=== PATIENT | female | born 1995 | race Caucasian/White ===

== ENCOUNTER 2021-05-25 09:05 | Emergency (ER) | payer BC ==
--- NOTE | 2021-05-25 09:33 | EDM.PDOC ---
ED HPI GENERAL MEDICAL PROBLEM - General Chief Complaint: General Stated Complaint: TOOTHACHE Time Seen by Provider: 05/25/21 09:19 Source of Information: Reports: Patient History Limitations: Reports: No Limitations - History of Present Illness INITIAL COMMENTS - FREE TEXT/NARRATIVE: Patient is a 25-year-old female presents today for swelling to her left lower gumline. Patient dates that started last night and she tried to call her dentist began getting for 6 months. She has an area that is fluctuant and painful on her back wisdom tooth. Patient denies any difficulty breathing swallowing and swelling tenderness to her jawline. Gums Pain Score (Numeric/FACES): 6 - Related Data Allergies Allergy/AdvReac Type Severity Reaction Status Date / Time No Known Allergies Allergy Verified 05/25/21 09:22 Home Meds: Home Meds . [Unable to Verify Home Med List] 05/25/21 [History] Past Medical History - Past Health History Medical/Surgical History: Denies Medical/Surgical History Psychiatric History: Reports: Depression - Infectious Disease History Infectious Disease History: Reports: Chicken Pox Social & Family History - Tobacco Use Tobacco Use Status *Q: Never Tobacco User - Caffeine Use Caffeine Use: Reports: None - Recreational Drug Use Recreational Drug Use: No ED ROS GENERAL - Review of Systems Review Of Systems: See Below Constitutional: Reports: No Symptoms HEENT: Reports: Dental Pain Respiratory: Reports: No Symptoms Cardiovascular: Reports: No Symptoms Endocrine: Reports: No Symptoms GI/Abdominal: Reports: No Symptoms : Reports: No Symptoms Musculoskeletal: Reports: No Symptoms Skin: Reports: No Symptoms Neurological: Reports: No Symptoms Psychiatric: Reports: No Symptoms Hematologic/Lymphatic: Reports: No Symptoms Immunologic: Reports: No Symptoms ED EXAM, GENERAL - Physical Exam Exam: See Below Exam Limited By: No Limitations General Appearance: Alert, WD/WN, No Apparent Distress Throat/Mouth: Normal Inspection, Normal Lips, Normal Voice. No: Normal Gums, Dysphagia Head: Atraumatic Respiratory/Chest: No Respiratory Distress, Lungs Clear, Normal Breath Sounds Cardiovascular: Normal Peripheral Pulses, Regular Rate, Rhythm GI/Abdominal: Normal Bowel Sounds, Soft, Non-Tender Course - Vital Signs Last Recorded V/S: Last Vital Signs Temp 96.7 F L 05/25/21 09:22 Pulse 94 05/25/21 09:22 Resp 16 05/25/21 09:22 BP 140/93 H 05/25/21 09:22 Pulse Ox 96 05/25/21 09:22 Departure - Departure Time of Disposition: :31 Disposition: Home, Self-Care 01 Condition: Good Clinical Impression: Dental abscess - Discharge Information *PRESCRIPTION DRUG MONITORING PROGRAM REVIEWED*: Not Applicable *COPY OF PRESCRIPTION DRUG MONITORING REPORT IN PATIENT THIERRY: Not Applicable Instructions: Dental Abscess, [id number] Referrals: Perla Tineo DO [Primary Care Provider] - Additional Instructions: The following information is given to patients seen in the emergency department who are being discharged to home. This information is to outline your options for follow-up care. We provide all patients seen in our emergency department with a follow-up referral. The need for follow-up, as well as the timing and circumstances, are variable depending upon the specifics of your emergency department visit. If you don't have a primary care physician on staff, we will provide you with a referral. We always advise you to contact your personal physician following an emergency department visit to inform them of the circumstance of the visit and for follow-up with them and/or the need for any referrals to a consulting specialist. The emergency department will also refer you to a specialist when appropriate. This referral assures that you have the opportunity for follow-up care with a specialist. All of these measure are taken in an effort to provide you with optimal care, which includes your follow-up. Under all circumstances we always encourage you to contact your private physician who remains a resource for coordinating your care. When calling for follow-up care, please make the office aware that this follow-up is from your recent emergency room visit. If for any reason you are refused follow-up, please contact the [facility] Emergency Department at and asked to speak to the emergency department charge nurse. Please follow up with your primary care physician. If you do not have a primary care physician, see below: [facility] [address] [place] [id number] [facility] [address] [place] [id number] You are seen for what looks like a dental abscess. We will send you home on antibiotic mouthwash as well as antibiotic to take for this abscess. There is no swelling to the gumline this area she did become smaller when she started the antibiotic the area increased in size she is having difficulty breathing or swallowing please return to ED immediately otherwise follow-up with primary care physician or dentist. Sepsis Event Note (ED) - Evaluation Sepsis Screening Result: No Definite Risk - Focused Exam Vital Signs: Vital Signs Temp Pulse Resp BP Pulse Ox 05/25/21 09:22 96.7 F L 94 16 140/93 H 96 - Assessment/Plan Plan: Patient is a 25-year-old female who presents today for pain along the gum lines. Patient has a abscess under the back right lower gumline under the lid was improved. Patient has no airway compromise and seems to be tolerating pain well will start patient on amoxicillin and have her follow-up with dental as outpatient.
== END 2021-05-25 10:06 | disposition home or self-care (01) ==
LOC: MW.ED 09:05
DX: K04.7 Periapical abscess without sinus (principal)
CPT/HCPCS: 99282; 99283

== ENCOUNTER 2021-08-08 10:45 | Emergency (ER) | payer BC ==
--- NOTE | 2021-08-08 10:53 | EDM.PDOC ---
ED HPI GENERAL MEDICAL PROBLEM - General Chief Complaint: Respiratory Problem Stated Complaint: SOB Time Seen by Provider: 08/08/21 10:47 Source of Information: Reports: Patient History Limitations: Reports: No Limitations - History of Present Illness INITIAL COMMENTS - FREE TEXT/NARRATIVE: HISTORY AND PHYSICAL: History of present illness: Patient is a 25-year-old female who presents to the emergency room with complaints of productive cough and shortness of breath. Patient states that she does have chest pain when she coughs. Concerned she may have a pneumonia as the sputum color is thick white/yellow. Patient denies any fever, chills, headache, change in vision, syncope or near syncope. Denies any neck/back pain, hemoptysis, GI or symptoms. Patient has been eating and drinking appropriately. No concern for , took test yesterday was negative. COVID-19 vaccine in May 2021. Has not been around any sick contacts. Review of systems: As per history of present illness and below otherwise all systems reviewed and negative. Past medical history: As per history of present illness and as reviewed below otherwise noncontributory. Surgical history: As per history of present illness and as reviewed below otherwise noncontributory. Social history: See social history for further information Family history: As per history of present illness and as reviewed below otherwise noncontributory. Physical exam: General: Well developed and well nourished 25-year-old female. Alert and orientated x 3. Nontoxic in appearance and in no acute distress. Vital signs are stable and have been reviewed by me. Nursing notes were reviewed. HEENT: Atraumatic, normocephalic, pupils equal and reactive bilaterally, negative for conjunctival pallor or scleral icterus, mucous membranes moist, TMs normal bilaterally, throat clear, neck supple, nontender, trachea midline. No drooling or trismus noted. No meningeal signs. No hot potato voice noted. Lungs: Clear to auscultation bilaterally. No wheezes, rales, or rhonchi. Chest nontender. Normal work of breathing, no accessory muscles used. Heart: S1S2, regular rate and rhythm without overt murmur, gallops, or rubs. No JVD. No peripheral edema Abdomen: Soft, obese, nontender. Normoactive bowel sounds. Negative for masses or costovertebral tenderness. Skin: Intact, warm, dry. No lesions or rashes noted. Hematologic: No petechiae or purpra. Mucosa appropriate color and normal nail bed color and refill. Extremities: Atraumatic, moves all extremities per self without difficulty or deficits, negative for cords or calf pain. Neurovascular unremarkable. Neuro: Awake, alert, oriented. Cranial nerves II through XII unremarkable. Cerebellum unremarkable. Motor and sensory unremarkable throughout. Exam nonfocal. Psychiatric: Mood and affect are appropriate. Normal thought process. Answering questions appropriately. Please note that the patient was seen and evaluated during the 2019 SARS-CoV-2 novel coronavirus pandemic period. Community viral transmission is ongoing at time of this encounter and the emergency department is operating under pandemic response procedures. Medical Decision Making: Patient is a 25-year-old female who presents to the emergency room with respiratory symptoms. She states she did get a COVID-19 vaccination in May but does have some concern of infection. AST and ALT are elevated. Patient does have a slight leukocytosis. Mild hyperinflation with increased interstitial markings which may represent bronchial thickening and/or pulmonary vascular congestion. COVID-19 negative. I have talked with the patient about today's findings, in addition to providing specific details for plan of care. Reassessment at the time of disposition demonstrates that the patient is in no acute distress. The patient is stable for discharge, counseling was provided and we discussed in great detail signs and symptoms that would prompt them to return to the Emergency Department. Medic ation, follow up and supportive care measures were reviewed and discussed. Voices understanding and is agreeable to plan of care. Denies any further questions or concerns at this time. Diagnostics: CBC, CMP, chest x-ray, COVID-19 Therapeutics: Sollu-Medrol, Zithromax, Albuterol Prescription: Zithromax, Prednisone Impression: Transaminitis Bronchitis Plan: 1. You were evaluated today on an emergent basis. Your liver enzymes are slightly elevated. Please decrease any alcohol intake as this could contribute to this. Chest x-ray shows bronchial thickening, will treat with steroids and antibiotics. You can use your inhaler 2 puffs every 4 hours as needed. COVID- 19 was negative. 2. You can alternate Tylenol and ibuprofen as needed for pain and fever management. 3. We encourage you to follow up with your primary care provider and/or recommended specialist in the next few days for re-evaluation and further care/management. 4. If your symptoms should worsen, new symptoms develop or any of the signs and symptoms we discussed should arise please return to the emergency room or call 911 (if needed). Definitive disposition and diagnosis as appropriate pending reevaluation and review of above. chest Pain Score (Numeric/FACES): 6 - Related Data Allergies Allergy/AdvReac Type Severity Reaction Status Date / Time No Known Allergies Allergy Verified 08/08/21 10:47 Home Meds: Home Meds Azithromycin [Zithromax] 1 dose PO DAILY 5 Days #4 tab 08/08/21 [Rx] buPROPion HCL [Bupropion Xl] 1 tab PO DAILY 08/08/21 [History] norgestimate-ethinyl estradioL [[place]-L[place]ah 28 Tablet] 1 tab PO DAILY 08/08/21 [History] predniSONE [Prednisone] 40 mg PO DAILY 4 Days #8 tablet 08/08/21 [Rx] Past Medical History - Past Health History Medical/Surgical History: Denies Medical/Surgical History Psychiatric History: Reports: Depression - Infectious Disease History Infectious Disease History: Reports: Chicken Pox Social & Family History - Caffeine Use Caffeine Use: Reports: None ED ROS GENERAL - Review of Systems Review Of Systems: Comprehensive ROS is negative, except as noted in HPI. ED EXAM, GENERAL - Physical Exam Exam: See Below (See dictation) Course - Vital Signs Last Recorded V/S: Last Vital Signs Temp 98.6 F 08/08/21 10:48 Pulse 96 08/08/21 12:38 Resp 17 08/08/21 12:38 BP 137/98 H 08/08/21 12:38 Pulse Ox 99 08/08/21 12:38 - Orders/Labs/Meds Labs: Laboratory Tests 08/08/21 08/08/21 08/08/21 Range/Units 10:52 10:52 10:52 WBC 13.23 H (4.0-11.0) K/uL RBC 4.93 (4.30-5.90) M/uL Hgb 14.6 (12.0-16.0) g/dL Hct 44.7 (36.0-46.0) % MCV 90.7 (80.0-98.0) fL MCH 29.6 (27.0-32.0) pg MCHC 32.7 (31.0-37.0) g/dL RDW Std Deviation 46.7 (28.0-62.0) fl RDW Coeff of Nela 14 (11.0-15.0) % Plt Count 323 (150-400) K/uL MPV 10.70 (7.40-12.00) fL Neut % (Auto) 49.6 (48.0-80.0) % Lymph % (Auto) 42.3 H (16.0-40.0) % [place] % (Auto) 5.1 (0.0-15.0) % Eos % (Auto) 2.8 (0.0-7.0) % Baso % (Auto) 0.2 (0.0-1.5) % Neut # (Auto) 6.6 H (1.4-5.7) K/uL Lymph # (Auto) 5.6 H (0.6-2.4) K/uL [place] # (Auto) 0.7 (0.0-0.8) K/uL Eos # (Auto) 0.4 (0.0-0.7) K/uL Baso # (Auto) 0.0 (0.0-0.1) K/uL Nucleated RBC % 0.0 /100WBC Nucleated RBCs # 0 K/uL Sodium 141 (136-145) mmol/L Potassium 3.8 (3.5-5.1) mmol/L Chloride 105 (98-107) mmol/L Carbon Dioxide 25.4 (21.0-32.0) mmol/L BUN 10 (7.0-18.0) mg/dL Creatinine 0.8 (0.6-1.0) mg/dL Est Cr Clr Drug Dosing 102.72 mL/min Estimated GFR (MDRD) > 60.0 ml/min Glucose 91 (74-106) mg/dL Calcium 8.5 (8.5-10.1) mg/dL Total Bilirubin 0.2 (0.2-1.0) mg/dL AST 191 H (15-37) IU/L ALT 269 H (14-63) IU/L Alkaline Phosphatase 85 (46-116) U/L B-Natriuretic Peptide (<100) PG/ML Total Protein 7.5 (6.4-8.2) g/dL Albumin 3.1 L (3.4-5.0) g/dL Globulin 4.4 H (2.6-4.0) g/dL Albumin/Globulin Ratio 0.7 L (0.9-1.6) SARS-CoV-2 RNA (ASHER) NEGATIVE (NEGATIVE) 08/08/21 Range/Units 10:52 WBC (4.0-11.0) K/uL RBC (4.30-5.90) M/uL Hgb (12.0-16.0) g/dL Hct (36.0-46.0) % MCV (80.0-98.0) fL MCH (27.0-32.0) pg MCHC (31.0-37.0) g/dL RDW Std Deviation (28.0-62.0) fl RDW Coeff of Nela (11.0-15.0) % Plt Count (150-400) K/uL MPV (7.40-12.00) fL Neut % (Auto) (48.0-80.0) % Lymph % (Auto) (16.0-40.0) % [place] % (Auto) (0.0-15.0) % Eos % (Auto) (0.0-7.0) % Baso % (Auto) (0.0-1.5) % Neut # (Auto) (1.4-5.7) K/uL Lymph # (Auto) (0.6-2.4) K/uL [place] # (Auto) (0.0-0.8) K/uL Eos # (Auto) (0.0-0.7) K/uL Baso # (Auto) (0.0-0.1) K/uL Nucleated RBC % /100WBC Nucleated RBCs # K/uL Sodium (136-145) mmol/L Potassium (3.5-5.1) mmol/L Chloride (98-107) mmol/L Carbon Dioxide (21.0-32.0) mmol/L BUN (7.0-18.0) mg/dL Creatinine (0.6-1.0) mg/dL Est Cr Clr Drug Dosing mL/min Estimated GFR (MDRD) ml/min Glucose (74-106) mg/dL Calcium (8.5-10.1) mg/dL Total Bilirubin (0.2-1.0) mg/dL AST (15-37) IU/L ALT (14-63) IU/L Alkaline Phosphatase (46-116) U/L B-Natriuretic Peptide < 2 (<100) PG/ML Total Protein (6.4-8.2) g/dL Albumin (3.4-5.0) g/dL Globulin (2.6-4.0) g/dL Albumin/Globulin Ratio (0.9-1.6) SARS-CoV-2 RNA (ASHER) (NEGATIVE) Meds: Medications Discontinued Medications Generic Name Dose Route Start Last Admin Trade Name Caity PRN Reason Stop Dose Admin Albuterol 8 gm 08/08/21 12:01 08/08/21 12:07 Albuterol 8 Gm Inhaler INH 08/08/21 12:02 8 gram ONETIME STA Administration Azithromycin 500 mg 08/08/21 12:00 08/08/21 12:07 Azithromycin 250 Mg Tab PO 08/08/21 12:01 500 mg NOW STA Administration Methylprednisolone Sodium Succinate 125 mg 08/08/21 11:58 08/08/21 12:07 Methylprednisolone Sodium Succinate 125 Mg/2 Ml Sdv IVPUSH 08/08/21 11:59 125 mg ONETIME ONE Administration Departure - Departure Time of Disposition: 12:24 Disposition: Home, Self-Care 01 Clinical Impression: Transaminitis, Bronchitis - Discharge Information Prescriptions: predniSONE [Prednisone] 40 mg PO DAILY 4 Days #8 tablet Azithromycin [Zithromax] 1 dose PO DAILY 5 Days #4 tab Instructions: Acute Bronchitis, Adult Referrals: Perla Tineo DO [Primary Care Provider] - Forms: ED Department Discharge Additional Instructions: The following information is given to patients seen in the emergency department who are being discharged to home. This information is to outline your options for follow-up care. We provide all patients seen in our emergency department with a follow-up referral. The need for follow-up, as well as the timing and circumstances, are variable depending upon the specifics of your emergency department visit. If you don't have a primary care physician on staff, we will provide you with a referral. We always advise you to contact your personal physician following an emergency department visit to inform them of the circumstance of the visit and for follow-up with them and/or the need for any referrals to a consulting specialist. The emergency department will also refer you to a specialist when appropriate. This referral assures that you have the opportunity for follow-up care with a specialist. All of these measure are taken in an effort to provide you with optimal care, which includes your follow-up. Under all circumstances we always encourage you to contact your private physician who remains a resource for coordinating your care. When calling for follow-up care, please make the office aware that this follow-up is from your recent emergency room visit. If for any reason you are refused follow-up, please contact the [facility] Emergency Department at and asked to speak to the emergency department charge nurse. [facility] [address] [place] [address] [id number] [facility] [address] [place] [phone] Thank you for choosing the [facility] emergency department in [place] for your medical needs today. It was a pleasure caring for you. Today you were seen in the emergency department for SOB and cough. 1. You were evaluated today on an emergent basis. Your liver enzymes are slightly elevated. Please decrease any alcohol intake as this could contribute to this. Chest x-ray shows bronchial thickening, will treat with steroids and antibiotics. You can use your inhaler 2 puffs every 4 hours as needed. COVID- 19 was negative. 2. You can alternate Tylenol and ibuprofen as needed for pain and fever management. 3. We encourage you to follow up with your primary care provider and/or recommended specialist in the next few days for re-evaluation and further care/management. 4. If your symptoms should worsen, new symptoms develop or any of the signs and symptoms we discussed should arise please return to the emergency room or call 911 (if needed). Sepsis Event Note (ED) - Focused Exam Vital Signs: Vital Signs Temp Pulse Resp BP Pulse Ox 08/08/21 12:38 96 17 137/98 H 99 08/08/21 10:48 98.6 F 95 20 154/105 H 96
--- NOTE | 2021-08-08 11:30 | CR ---
Indication: Shortness of breath Comparison: None available. Technique: Single AP view chest Findings: There are increased interstitial markings likely representing mild pulmonary vascular congestion. There is no dense consolidation or effusion. The cardiomediastinal silhouette is within normal limits. The bony thorax is grossly intact. Impression: Mild hyperinflation with increased interstitial markings which may represent bronchial thickening and/or pulmonary vascular congestion. Dictated by Madi Mclaughlin MD @ 08/08/2021 11:28:53 AM (Electronically Signed)
[2021-08-08 11:32] LABS: BLOOD UREA NITROGEN,BUN 10 mg/dL (7.0-18.0); CARBON DIOXIDE,CO2 25.4 mmol/L (21.0-32.0); CHLORIDE,CL 105 mmol/L (98-107); GLUCOSE RANDOM 91 mg/dL (74-106); POTASSIUM,K 3.8 mmol/L (3.5-5.1); SODIUM,NA 141 mmol/L (136-145)
--- NOTE | 2021-08-08 11:45 | PCM.EKG ---
#1 Interpretation EKG Interpretation Comments: EKG performed on 08/08/2021 at 11:27 AM. Rhythm sinus Rate 96 RI interval 145 QT duration 460 [place] -46. QRS left anterior fascicular block and low voltage. There is late transition to R wave in the precordium. No prior for comparison. Impression no acute injury.
[2021-08-08] MEDS ORDERED: methylPREDNISolone Sodium Succinate 125 MG/2 ML SDV IVPUSH ONE (11:58)
[2021-08-08] MEDS ORDERED: Azithromycin 250 MG Tab PO STA (12:00)
[2021-08-08] MEDS ORDERED: Albuterol 8 GM Inhaler INH STA (12:01)
== END 2021-08-08 12:38 | disposition home or self-care (01) ==
LOC: MW.ED 10:45
DX: J40 Bronchitis, not specified as acute or chronic (principal); R74.01 Elevation of levels of liver transaminase levels; Z20.822 Contact with and (suspected) exposure to COVID-19; Z79.899 Other long term (current) drug therapy
CPT/HCPCS: 36415; 71045; 80053; 83880; 85025; 87635; 93005; 96374; 99285; A9270; J2930; U0002